=== PATIENT | female | born 1960 | race Caucasian/White ===

== ENCOUNTER → 2019-03-18 | Day surgery (SDC) | payer BC ==
[2019-03-12 13:43] LABS: ANION GAP 12.9 mmol/L (8-16); BLOOD UREA NITROGEN 10 mg/dL (7-26); BUN/CREATININE RATIO 12 (6-25); CALCIUM 9.6 mg/dL (8.4-10.2); CARBON DIOXIDE 21 mmol/L (22-29); CHLORIDE 107 mmol/L (98-107); CREATININE, SERUM 0.84 mg/dL (0.57-1.11); EST GLOMERULAR FILTRATION RATE > 60 ML/MIN (60-); GLUCOSE 211 mg/dL (74-118); POTASSIUM 3.9 mmol/L (3.5-5.1); SODIUM 137 mmol/L (136-145)
[~2019-03-18] MED LIST: BUPIVACAINE HCL 0.5% INJ 30 ML VIAL INJ ONE; CALCIUM CARBON500 MG PO; CEFAZOLIN SOD 1 GM/NS 50ML 100 ML IV ONE; CRANBERRY450 M2 PO; DEXAMETHASONE SOD PHOS INJ 4 MG/ML VIAL ONE; DIPHENHYDRAMINE HCL INJ 50 MG/ML VIAL ONE; EVAMIST8.1 ML TP; FENTANYL CITRATE/PF 100MCG/2 ML INJ ONE; GLYBURIDE5 MG PO; INSULIN REGULAR, HUMAN 100 UNIT/1 ML 3ML VIAL ONE; INTRAROSA6.5 MG VG; JANUVIA100 MG PO; KETOROLAC TROMETHAMINE 30 MG/ML VIAL ONE; LIDOCAINE HCL 2% LOCAL INJ 5 ML SDV VIAL INJ ONE; LOSARTAN POTASS25 MG PO; MIDAZOLAM HCL 2 MG/2 ML VIAL ONE; NEOSTIGMINE 1 MG/ML 10ML VIAL ONE; ONDANSETRON HCL INJ 2MG/ML 2ML 2 MG/ML VIAL ONE; OZEMPIC1 MG/0.75 SQ; PANTOPRAZOLE SO40 MG PO; PHENYLEPHRINE HCL 1% 10 MG/ML VIAL ONE; PROBIOTIC250 MG PO; PROPOFOL IV EMULSION 10 MG/ML 20 ML VIAL ONE; SEVOFLURANE INHAL SOLN 250 ML PEN BTL ONE; TOPIRAMATE100 MG PO; TRESIBA100 UNIT/1 SQ; VITAMIN B-121000 MCG PO; VITAMIN D350000 UNIT PO; ZETIA10 MG PO
--- OUTSIDE RECORDS SUMMARY | 2019-03-18 07:50 | XMS REPORT ---
Author [facility] Address Unknown Phone Unavailable Care Team Providers Care Automation Qa Tester Name Role Phone Unavailable Unavailable Payers Payer Name Policy Type Policy Number Effective Date Expiration Date Problems This patient has no known problems. Allergies, Adverse Reactions, Alerts Allergy Name Allergy Type Status Severity Reaction(s) Onset Date Inactive Date Treating Clinician Comments meperidine HCl DA Active MO 2009-02-04 00:00:00 amoxicillin trihydrate DA Active U 2009-02-04 00:00:00 codeine DA Active MO 2009-02-04 00:00:00 potassium clavulanate DA Active U 2009-02-04 00:00:00 sulfamethoxazole DA Active SV 2009-02-04 00:00:00 trimethoprim DA Active SV 2009-02-04 00:00:00 Medications This patient has no known medications. Results Test Description Test Time Test Comments Text Results Atomic Results Result Comments - CT ABD PELVIS W/CONT 2018-11-18 19:45:00 Patient Name: FOREST LEW Unit No: [id number] EXAMS: CPT CODE: [id number] CT ABD PELVIS W/CONT 46210 Reason: rlq pain, r/o appendicitis COMPARISON: None PROCEDURE: CT of the abdomen and pelvis with contrast. Patient received an intravenous dose of 100 mL of Isovue-300 and oral contrast. The visualized lower chest shows normal heart size. No pleural or pericardial effusion is seen. Distal esophagus and aorta are normal. No pulmonary nodular infiltrate is seen. Liver is diffusely hypodense when compared to the spleen in keeping with fatty liver infiltration with no focal lesion. The gallbladder is surgically absent. The uterus, the pancreas, the adrenal glands and the kidneys are normal. No hydronephrosis or nephrolithiasis is seen. Abdominal aorta is of normal caliber with mild atheromatous changes. No free air or fluid is seen. No stranding of the mesenteric fat is seen to suggest an inflammatory process. There are few scattered descending colon diverticula without inflammatory changes. Few diverticula are also seen in the distal descending and sigmoid colon without inflammatory changes. The appendix is normal. The uterus is surgically absent. No pelvic mass or lymphadenopathy seen. No free fluid is seen in the cul-de-sac. No stranding of the pelvic fat is seen to suggest an inflammatory process. No umbilical or inguinal hernia seen. IMPRESSION: 1. Fatty liver infiltration with no focal lesion. 2. Previous cholecystectomy and hysterectomy. 3. Mild diverticulosis of the descend ing and sigmoid colon. No inflammatory process is seen in the abdomen and pelvis or evidence of bowel obstruction. The appendix is normal. at 1946 Reported and signed by: Pradip Fay MD CC: Aundrea Melgar MD; Ramses Leavitt DO Technologist: Raquel HENDRIX Trscrpt Dt/ ([email or web address] Orig Print D/T: S: 11/18/2018 (1948) CTDI: DLP: [facility] NAME: FOREST LEW [address] [facility] [place] [address] : 1960 AGE: 58 SEX: F LOC: MIRIAM PHONE #: [phone] EXAM DATE: 11/18/2018 STATUS: REG ER FAX #: RAD NO: DC Dt: PAGE 1 Signed Report UA RFLX MICROSCOPIC CULTURE 2018-11-18 18:58:00 UA COLOR (test code=COLU) YELLOW YELLOW UA APPEARANCE (test code=APPU) CLEAR CLEAR UA GLUCOSE DIPSTICK (test code=DGLUU) 50 mg/dL NEGATIVE UA BILIRUBIN DIPSTICK (test code=BILU) NEGATIVE NEGATIVE UA KETONE DIPSTICK (test code=KETU) NEGATIVE mg/dL NEGATIVE UA SPECIFIC GRAVITY (test code=SGU) 1.015 1.001-1.035 UA BLOOD DIPSTICK (test code=EDWARD) NEGATIVE NEGATIVE UA PH DIPSTICK (test code=SHANIA) 6.0 5.5-7.0 UA PROTEIN DIPSTICK (test code=PROU) NEGATIVE mg/dL NEGATIVE UA UROBILINOGEN DIPSTICK (test code=URO) NORMAL mg/dL NORMAL UA NITRITE DIPSTICK (test code=BENIGNO) NEGATIVE NEGATIVE UA LEUKOCYTE ESTERASE DIPSTICK (test code=LEUU) TRACE NEGATIVE UA COMMENT (test code=COMU) VOLUME 10-12 ML URINE SPECIMEN DESCRIPTION (test code=UASPEC) Clean Catch UA WBC (test code=WBCU) < 10 #/hpf <10 UA SQUAMOUS CELLS (test code=SQU) 20 - 40 #/lpf <100 UA CULTURE NEEDED? (test code=UACULT) Criteria not met Indication for culture: Suprapubic PainURINE SOURCE: Clean CatchUA [id number] 18:58:00* Test Item Value Reference Range Comments UA RBC (test code=RBCU) 0-2 #/hpf NONE SEEN UA BACTERIA (test code=BACU) FEW #/hpf NONE SEEN UA MUCUS (test code=MUCU) RARE #/lpf NONE SEEN Indication for culture: Suprapubic PainURINE SOURCE: Clean CatchUA RFLX MICROSCOPIC [id number] 18:47:00* Test Item Value Reference Range Comments UA COLOR (test code=COLU) YELLOW YELLOW UA APPEARANCE (test code=APPU) CLEAR CLEAR UA GLUCOSE DIPSTICK (test code=DGLUU) 50 mg/dL NEGATIVE UA BILIRUBIN DIPSTICK (test code=BILU) NEGATIVE NEGATIVE UA KETONE DIPSTICK (test code=KETU) NEGATIVE mg/dL NEGATIVE UA SPECIFIC GRAVITY (test code=SGU) 1.015 1.001-1.035 UA BLOOD DIPSTICK (test code=EDWARD) NEGATIVE NEGATIVE UA PH DIPSTICK (test code=SHANIA) 6.0 5.5-7.0 UA PROTEIN DIPSTICK (test code=PROU) NEGATIVE mg/dL NEGATIVE UA UROBILINOGEN DIPSTICK (test code=URO) NORMAL mg/dL NORMAL UA NITRITE DIPSTICK (test code=BENIGNO) NEGATIVE NEGATIVE UA LEUKOCYTE ESTERASE DIPSTICK (test code=LEUU) TRACE NEGATIVE UA COMMENT (test code=COMU) VOLUME 10-12 ML URINE SPECIMEN DESCRIPTION (test code=UASPEC) Clean Catch UA WBC (test code=WBCU) #/hpf <10 UA SQUAMOUS CELLS (test code=SQU) #/lpf <100 UA CULTURE NEEDED? (test code=UACULT) Indication for culture: Suprapubic PainURINE SOURCE: Clean CatchUA [id number] 18:47:00* Test Item Value Reference Range Comments UA RBC (test code=RBCU) #/hpf NONE SEEN Indication for culture: Suprapubic PainURINE SOURCE: Clean CatchUA RFLX MICROSCOPIC [id number] 18:47:00* Test Item Value Reference Range Comments UA COLOR (test code=COLU) YELLOW YELLOW UA APPEARANCE (test code=APPU) CLEAR CLEAR UA GLUCOSE DIPSTICK (test code=DGLUU) 50 mg/dL NEGATIVE UA BILIRUBIN DIPSTICK (test code=BILU) NEGATIVE NEGATIVE UA KETONE DIPSTICK (test code=KETU) NEGATIVE mg/dL NEGATIVE UA SPECIFIC GRAVITY (test code=SGU) 1.015 1.001-1.035 UA BLOOD DIPSTICK (test code=EDWARD) NEGATIVE NEGATIVE UA PH DIPSTICK (test code=SHANIA) 6.0 5.5-7.0 UA PROTEIN DIPSTICK (test code=PROU) NEGATIVE mg/dL NEGATIVE UA UROBILINOGEN DIPSTICK (test code=URO) NORMAL mg/dL NORMAL UA NITRITE DIPSTICK (test code=BENIGNO) NEGATIVE NEGATIVE UA LEUKOCYTE ESTERASE DIPSTICK (test code=LEUU) TRACE NEGATIVE UA COMMENT (test code=COMU) VOLUME 10-12 ML URINE SPECIMEN DESCRIPTION (test code=UASPEC) Clean Catch UA WBC (test code=WBCU) #/hpf <10 UA SQUAMOUS CELLS (test code=SQU) #/lpf <100 UA CULTURE NEEDED? (test code=UACULT) Indication for culture: Suprapubic PainURINE SOURCE: Clean CatchUA [id number] 18:47:00* Test Item Value Reference Range Comments UA RBC (test code=RBCU) #/hpf NONE SEEN Indication for culture: Suprapubic PainURINE SOURCE: Clean Catch COMPREHENSIVE METABOLIC [id number] 18:06:00* Test Item Value Reference Range Comments SODIUM (test code=NA) 141 MMOL/L 133-145 POTASSIUM (test code=K) 3.8 MMOL/L 3.6-5.2 CHLORIDE (test code=CL) 105 MMOL/L 100-108 CARBON DIOXIDE (test code=CO2) 24 MMOL/L 22-32 GLUCOSE (test code=GLU) 191 MG/DL 65-99 Results of this assay method may be falsely depressed orelevated if patient is taking sulfasalazine. BLOOD UREA NITROGEN (test code=BUN) 14 MG/DL 6-20 GLOMERULAR FILTRATION RATE (test code=GFR) 73 51-120 Reporting units: mL/min/1.73m\S\2 (Modified MDRD Formula) CREATININE (test code=CREAT) 0.80 MG/DL 0.60-1.00 TOTAL PROTEIN (test code=PROT) 7.8 G/DL 6.4-8.2 ALBUMIN (test code=ALB) 3.9 G/DL 3.4-5.0 GLOBULIN (test code=GLOB) 3.9 G/DL 1.5-3.8 ALBUMIN/GLOBULIN RATIO (test code=A/G) 1.0 1.1-2.2 CALCIUM (test code=CA) 9.2 MG/DL 8.7-10.5 BILIRUBIN TOTAL (test code=BILT) 0.4 MG/DL 0.0-1.0 SGOT/AST (test code=AST) 25 Units/L 15-37 Results of this assay method may be falsely depressed orelevated if patient is taking sulfasalazine. SGPT/ALT (test code=ALT) 51 Units/L 30-65 Results of this assay method may be falsely depressed orelevated if patient is taking sulfasalazine. ALKALINE PHOSPHATASE TOTAL (test code=ALKP) 98 Units/L 50-136 [id number] 18:06:00* Test Item Value Reference Range Comments MAGNESIUM (test code=MAG) 1.8 MG/DL 1.8-2.4 COMPREHENSIVE METABOLIC [id number] 18:04:00* Test Item Value Reference Range Comments SODIUM (test code=NA) 141 MMOL/L 133-145 POTASSIUM (test code=K) 3.8 MMOL/L 3.6-5.2 CHLORIDE (test code=CL) 105 MMOL/L 100-108 CARBON DIOXIDE (test code=CO2) 24 MMOL/L 22-32 GLUCOSE (test code=GLU) 191 MG/DL 65-99 Results of this assay method may be falsely depressed orelevated if patient is taking sulfasalazine. BLOOD UREA NITROGEN (test code=BUN) 14 MG/DL 6-20 GLOMERULAR FILTRATION RATE (test code=GFR) 73 51-120 Reporting units: mL/min/1.73m\S\2 (Modified MDRD Formula) CREATININE (test code=CREAT) 0.80 MG/DL 0.60-1.00 TOTAL PROTEIN (test code=PROT) G/DL 6.4-8.2 ALBUMIN (test code=ALB) G/DL 3.4-5.0 GLOBULIN (test code=GLOB) G/DL 1.5-3.8 ALBUMIN/GLOBULIN RATIO (test code=A/G) 1.1-2.2 CALCIUM (test code=CA) 9.2 MG/DL 8.7-10.5 BILIRUBIN TOTAL (test code=BILT) MG/DL 0.0-1.0 SGOT/AST (test code=AST) Units/L 15-37 SGPT/ALT (test code=ALT) Units/L 30-65 ALKALINE PHOSPHATASE TOTAL (test code=ALKP) Units/L 50-136 [id number] 18:04:00* Test Item Value Reference Range Comments MAGNESIUM (test code=MAG) MG/DL 1.8-2.4 CBC W/AUTO [id number] 17:53:00* Test Item Value Reference Range Comments WHITE BLOOD CELL (test code=WBC) 4.84 x10 3/uL 4.80-10.80 RED BLOOD CELL (test code=RBC) 4.69 x10 6/uL 4.2-5.4 HEMOGLOBIN (test code=HGB) 13.8 G/DL 12.0-16.0 HEMATOCRIT (test code=HCT) 40.2 % 37-47 MEAN CELL VOLUME (test code=MCV) 85.7 FL 81-99 MEAN CELL HGB (test code=MCH) 29.4 PG 27-31 MEAN CELL HGB CONCENTRATION (test code=MCHC) 34.3 G/DL 33-37 RED CELL DISTRIBUTION WIDTH (test code=RDW) 12.7 % 11.5-14.5 PLATELET COUNT (test code=PLT) 191 x10 3/uL 150-450 MEAN PLATELET VOLUME (test code=MPV) 10.7 FL 7.4-10.4 NEUTROPHIL % (test code=NT%) 57.1 % 42-86 LYMPHOCYTE % (test code=LY%) 28.1 % 24-44 MONOCYTE % (test code=MO%) 10.1 % 0.0-4.0 EOSINOPHIL % (test code=EO%) 4.3 % 0.0-2.7 BASOPHIL % (test code=BA%) 0.4 % 0.0-0.5 NEUTROPHIL # (test code=NT#) 2.76 x10 3/uL 1.8-7.7 LYMPHOCYTE # (test code=LY#) 1.36 x10 3/uL 1.0-4.8 MONOCYTE # (test code=MO#) 0.49 x10 3/uL 0.0-0.8 EOSINOPHIL # (test code=EO#) 0.21 x10 3/uL 0.0-0.5 BASOPHIL # (test code=BA#) 0.02 x10 3/uL 0.0-0.2
[2019-03-18 12:20] VITALS: BP 133/70
--- NOTE | 2019-03-18 12:55 | Operative Report ---
DATE OF PROCEDURE: 03/18/2019 SURGEON: Sally Tracey DPM GOVERNMENT AFFAIRS MANAGER: None. PREOPERATIVE DIAGNOSES: 1. Hallux abductovalgus, left foot. 2. 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 3. Neuritis, 2nd interspace, left foot. PATHOLOGY: Removed. Neuroma sent for pathology. ANESTHESIA: General anesthetic. HEMOSTASIS: A pneumatic thigh tourniquet at 250 mmHg. ESTIMATED BLOOD LOSS: Less than 10 mL. MATERIALS: Two screws from [employer] 2.0 x 16, human allograft 2 x 4 to prevent adhesions to promote healing. COMPLICATIONS: None. CONDITION: Stable. PROCEDURE IN DETAIL: Under mild sedation, the patient was brought to the operative room and placed on the operating table in supine position. Following IV sedation, anesthesia was obtained with a general anesthetic. At this point, the foot was scrubbed, prepped, and draped in usual aseptic manner. It was then lowered to the table. Attention was directed to the dorsal aspect to the left foot, where a linear incision was made overlying the 1st MPJ. The incision was deepened via sharp and blunt dissection down to the level of the capsule. An inverted L-capsulotomy was then performed. At this point, there was noted to be a large dorsal and medial exostosis. Utilizing an oscillating saw, this was removed. Attention was directed to the left 1st intermetatarsal space, where a lateral release was performed in order to let the sesamoids free into more anatomical position. At this point, a through and through 60-degree osteotomy was then made of the 1st metatarsal. The head of the 1st metatarsal was then moved into the lateral position helping to close the intermetatarsal angle. Two screws 2.0 were used for compression and fixation. There was noted to be adequate alignment clinically with the use of intraoperative fluoroscopy. The area was then flushed with copious amount of normal sterile saline solution. The area was then made smooth. The area was then closed, closing the deepest layer with 2-0 Vicryl, 3-0 Vicryl, and 4-0 nylon. Before closure of the subcutaneous layer, human allograft was inserted to prevent adhesions to promote healing of the area and to prevent nerve entrapment. Attention was then directed to the 3rd intermetatarsal space, where linear incision was made overlying the intermetatarsal space. The incision was deepened down to the level of the intermetatarsal ligament. It was transected through and through. At this point, the large neuroma was then visualized. Utilizing a combination of 15 blade and scissors, the neuroma was transected through and through. It was sent to the lab for pathology. The area was then flushed with copious amount of normal sterile saline solution. Human allograft was then inserted into the area and noted to prevent adhesion of the nerve and to promote healing. Attention was then directed to the 2nd intermetatarsal space, where a neurolysis was performed. The ligament was released and the intermetatarsals were released, and compression of the nerve. All areas were then flushed with copious amount of normal sterile saline solution and the areas were closed with 4-0 Vicryl and 4-0 nylon. Clean dressing was applied consisting of Adaptic, 4x4s, Kerlix, and an Gabriel bandage. The human allograft had been inserted into the subcuticular level at the area of the nerve for the neuroma in the 1st MPJ. Clean dressing was applied consisting of Adaptic, 4x4s, Kerlix, and Gabriel bandage. The tourniquet was deflated. There was noted to be hyperemic response to all the digits. The patient tolerated the procedure and anesthesia well without complications and was transported to recovery room with vital signs stable and vascular status intact to both feet. The patient will be discharged home when she meets criteria. She was given instructions to be nonweightbearing, to ice and elevate the foot while at rest. Follow up with me in the office and to call the office if any questions, concerns, or problems arise. JEAN Sharp/ERIKAL /[id number]
== END | disposition home or self-care (01) ==
LOC: OR 07:47
PROVIDERS: ATTEND Podiatrist Foot & Ankle Surgery
DX: M20.11 Hallux valgus (acquired), right foot (principal); G57.62 Lesion of plantar nerve, left lower limb; M54.9 Dorsalgia, unspecified; I10 Essential (primary) hypertension; E78.5 Hyperlipidemia, unspecified; E11.9 Type 2 diabetes mellitus without complications; K21.9 Gastro-esophageal reflux disease without esophagitis; K58.9 Irritable bowel syndrome, unspecified; F95.9 Tic disorder, unspecified; Z01.810 Encounter for preprocedural cardiovascular examination; Z01.812 Encounter for preprocedural laboratory examination; Z88.6 Allergy status to analgesic agent; Z88.1 Allergy status to other antibiotic agents; Z88.2 Allergy status to sulfonamides
CPT/HCPCS: 28080; 28299; 36415 ×2; 64704; 76000; 80048; 82948; 88304; 93005; C1713 ×2; J0690; J1100; J1200; J1885; J2001; J2250; J2370; J2405; J2704; J2710; J3010; Q4150; J1817

== ENCOUNTER → 2020-12-27 | Day surgery (SDC) | payer BC ==
[~2020-12-27] MED LIST changes: +ALPHA LIPOIC A300 MG PO; -BUPIVACAINE HCL 0.5% INJ 30 ML VIAL INJ ONE; -CEFAZOLIN SOD 1 GM/NS 50ML 100 ML IV ONE; +CO Q-10100 MG PO; -DEXAMETHASONE SOD PHOS INJ 4 MG/ML VIAL ONE; -DIPHENHYDRAMINE HCL INJ 50 MG/ML VIAL ONE; -INSULIN REGULAR, HUMAN 100 UNIT/1 ML 3ML VIAL ONE; -KETOROLAC TROMETHAMINE 30 MG/ML VIAL ONE; +LEVOTHYROXINE50 MCG PO; +METOCLOPRAMIDE HCL 10 MG/2ML VIAL ONE; -MIDAZOLAM HCL 2 MG/2 ML VIAL ONE; -NEOSTIGMINE 1 MG/ML 10ML VIAL ONE; +OXYBUTYNIN CHLOR5 M1 PO; -PHENYLEPHRINE HCL 1% 10 MG/ML VIAL ONE; +POVIDONE IODINE 0.05% 0.05 % ML PO ONE
[2020-12-27 06:55] LABS: ANION GAP 10.8 mmol/L (8-16); CALCIUM 8.9 mg/dL (8.4-10.2); CREATININE, SERUM 0.84 mg/dL (0.57-1.11); POTASSIUM 3.8 mmol/L (3.5-5.1)
[2020-12-27 09:15] VITALS: BP 137/68
== END | disposition home or self-care (01) ==
LOC: OR 05:31
PROVIDERS: ATTEND Specialist
DX: M65.311 Trigger thumb, right thumb (principal); M65.331 Trigger finger, right middle finger; E11.9 Type 2 diabetes mellitus without complications; I10 Essential (primary) hypertension; E03.9 Hypothyroidism, unspecified; K21.9 Gastro-esophageal reflux disease without esophagitis; Z20.822 Contact with and (suspected) exposure to COVID-19; Z79.4 Long term (current) use of insulin
CPT/HCPCS: 26055 ×2; 36415; 80048; 82948; 93005; J0690; J2405; J3010; U0002; J2001; J2765